=== PATIENT | female | born 1935 ===

== ENCOUNTER 2018-02-26 14:12 | Outpatient (CLI) | payer OTHER | END 2018-02-26 14:13 | disposition home or self-care (01) | LOC: LAB 14:12 | DX: C50.412 Malignant neoplasm of upper-outer quadrant of left female breast (principal); Z17.0 Estrogen receptor positive status [ER+]; Z79.811 Long term (current) use of aromatase inhibitors; Z90.12 Acquired absence of left breast and nipple; D50.8 Other iron deficiency anemias; D63.0 Anemia in neoplastic disease; D51.8 Other vitamin B12 deficiency anemias; F33.8 Other recurrent depressive disorders; E03.8 Other specified hypothyroidism; I10 Essential (primary) hypertension; E78.2 Mixed hyperlipidemia; R97.0 Elevated carcinoembryonic antigen [CEA]; R97.8 Other abnormal tumor markers ==

== ENCOUNTER 2018-03-18 14:44 | Outpatient (CLI) | payer OTHER ==
[~2018-03-18 14:44] MED LIST: APETIGEN PO; ATIVAN2 MG PO; INFUVITE ADULT10 ML IV; LORazepam 1MG TAB PO; Neurin-Sl Tablet Sl SL; VASOTEC20 MG PO; VYTORIN 10-20 M1 TAB PO; ZOLOFT50 MG PO
== END 2018-03-18 15:00 | disposition home or self-care (01) ==
LOC: MRI 14:44
DX: M54.5 Low back pain (principal)
CPT/HCPCS: 72148

== ENCOUNTER 2018-05-30 13:47 | Outpatient (CLI) | payer OTHER | END 2018-05-30 14:08 | disposition home or self-care (01) | LOC: LAB 13:47 | DX: E03.8 Other specified hypothyroidism (principal); E78.2 Mixed hyperlipidemia; C50.412 Malignant neoplasm of upper-outer quadrant of left female breast; D50.8 Other iron deficiency anemias; D63.8 Anemia in other chronic diseases classified elsewhere; D64.89 Other specified anemias; D70.8 Other neutropenia; F33.8 Other recurrent depressive disorders; E78.89 Other lipoprotein metabolism disorders; E55.9 Vitamin D deficiency, unspecified; Z98.1 Arthrodesis status; F41.8 Other specified anxiety disorders; G62.89 Other specified polyneuropathies; M17.11 Unilateral primary osteoarthritis, right knee; M81.0 Age-related osteoporosis without current pathological fracture; F39 Unspecified mood [affective] disorder; I70.0 Atherosclerosis of aorta ==

== ENCOUNTER → 2018-07-09 | Outpatient (CLI) | payer OTHER | END | disposition home or self-care (01) | LOC: MAMO-SONO 13:30 | DX: Z12.31 Encounter for screening mammogram for malignant neoplasm of breast (principal); C50.412 Malignant neoplasm of upper-outer quadrant of left female breast; Z90.12 Acquired absence of left breast and nipple; Z17.0 Estrogen receptor positive status [ER+]; Z79.811 Long term (current) use of aromatase inhibitors; D50.8 Other iron deficiency anemias; D63.8 Anemia in other chronic diseases classified elsewhere; D51.8 Other vitamin B12 deficiency anemias; F33.9 Major depressive disorder, recurrent, unspecified; I10 Essential (primary) hypertension ==

== ENCOUNTER 2018-07-21 12:15 | Outpatient (CLI) | payer OTHER | END 2018-07-21 17:00 | disposition home or self-care (01) | LOC: TOM 12:15 | DX: K56.600 Partial intestinal obstruction, unspecified as to cause (principal); K63.5 Polyp of colon; Z86.010 Personal history of colon polyps ==

== ENCOUNTER 2018-08-01 10:57 | Outpatient (CLI) | payer OTHER | END 2018-08-01 11:00 | disposition home or self-care (01) | LOC: NUCLEAR 10:57 | DX: C50.412 Malignant neoplasm of upper-outer quadrant of left female breast (principal); Z90.12 Acquired absence of left breast and nipple; Z17.0 Estrogen receptor positive status [ER+]; Z79.811 Long term (current) use of aromatase inhibitors; D50.8 Other iron deficiency anemias; D63.8 Anemia in other chronic diseases classified elsewhere; D51.8 Other vitamin B12 deficiency anemias; E03.9 Hypothyroidism, unspecified; I10 Essential (primary) hypertension; Z08 Encounter for follow-up examination after completed treatment for malignant neoplasm | CPT/HCPCS: 78816; A9552 ==

== ENCOUNTER 2018-08-06 12:10 | Outpatient (CLI) | payer OTHER | END 2018-08-06 12:49 | disposition home or self-care (01) | LOC: LAB 12:10 | DX: C50.412 Malignant neoplasm of upper-outer quadrant of left female breast (principal); Z90.12 Acquired absence of left breast and nipple; Z17.0 Estrogen receptor positive status [ER+]; Z79.811 Long term (current) use of aromatase inhibitors; D50.8 Other iron deficiency anemias; D63.8 Anemia in other chronic diseases classified elsewhere; D51.8 Other vitamin B12 deficiency anemias; E03.8 Other specified hypothyroidism; I10 Essential (primary) hypertension; E55.9 Vitamin D deficiency, unspecified; R97.0 Elevated carcinoembryonic antigen [CEA]; R97.8 Other abnormal tumor markers; K29.40 Chronic atrophic gastritis without bleeding; D3A.092 Benign carcinoid tumor of the stomach; K57.30 Diverticulosis of large intestine without perforation or abscess without bleeding ==

== ENCOUNTER 2018-08-11 15:32 | Emergency (ER) | payer OTHER ==
[~2018-08-11] VITALS: Ht 152.4 cm; Wt 52.2 kg
[2018-08-11] MEDS ORDERED: KETO10TA2 PO (21:02)
[2018-08-11] MEDS ORDERED: DUI500 PO (21:02)
[2018-08-11] MEDS ORDERED: INTESTINEX680 M1 PO (21:02)
[2018-08-11] MEDS ORDERED: PEPCID AC20 MG PO (21:02)
== END 2018-08-11 21:15 | disposition home or self-care (01) ==
LOC: ER 15:32
DX: L03.113 Cellulitis of right upper limb (principal); M70.21 Olecranon bursitis, right elbow; M25.531 Pain in right wrist; S50.3 Other superficial injuries of elbow; W18.09XS Striking against other object with subsequent fall, sequela

== ENCOUNTER 2019-04-25 16:06 | Emergency (ER) | payer OTHER ==
[~2019-04-25] VITALS: Ht 160 cm; Wt 65.8 kg
[~2019-04-25 16:06] MED LIST changes: +DUI500 PO; +INTESTINEX680 M1 PO; +KETO10TA2 PO; +PEPCID AC20 MG PO
== END 2019-04-25 23:37 | disposition home or self-care (01) ==
LOC: ER 16:06
DX: K52.89 Other specified noninfective gastroenteritis and colitis (principal); E86.0 Dehydration; N39.0 Urinary tract infection, site not specified; S00.03XA Contusion of scalp, initial encounter; S40.812A Abrasion of left upper arm, initial encounter; S19.89XA Other specified injuries of other specified part of neck, initial encounter; W18.09XA Striking against other object with subsequent fall, initial encounter; Y93.89 Activity, other specified; Y92.89 Other specified places as the place of occurrence of the external cause; Y99.8 Other external cause status

== ENCOUNTER 2019-05-12 16:19 | Emergency (ER) | payer OTHER ==
[~2019-05-12] VITALS: Ht 157.5 cm; Wt 52.2 kg
== END 2019-05-13 07:59 | disposition home or self-care (01) ==
LOC: ER 16:19
DX: E86.0 Dehydration (principal); R53.1 Weakness

== ENCOUNTER 2019-06-14 14:05 | Emergency (ER) | payer OTHER ==
[~2019-06-14] VITALS: Ht 152.4 cm; Wt 59.0 kg
== END 2019-06-14 18:30 | disposition designated cancer center or children's hospital (05) ==
LOC: ER 14:05
DX: S00.83XA Contusion of other part of head, initial encounter (principal); D49.6 Neoplasm of unspecified behavior of brain; W18.09XA Striking against other object with subsequent fall, initial encounter; Y93.89 Activity, other specified; Y92.89 Other specified places as the place of occurrence of the external cause; Y99.8 Other external cause status

== ENCOUNTER 2019-08-10 13:22 | Emergency (ER) | payer OTHER ==
[~2019-08-10] VITALS: Ht 152.4 cm; Wt 47.6 kg
[2019-08-11] MEDS ORDERED: CIPRO500 MG PO (06:57)
== END 2019-08-11 07:24 | disposition home or self-care (01) ==
LOC: ER 13:22
DX: N39.0 Urinary tract infection, site not specified (principal); R42 Dizziness and giddiness; C71.9 Malignant neoplasm of brain, unspecified; Z92.3 Personal history of irradiation

== ENCOUNTER → 2019-09-23 | Emergency (ER) | payer OTHER ==
[~2019-09-23] VITALS: Ht 165.1 cm; Wt 49.9 kg
[~2019-09-23] MED LIST changes: +CIPRO500 MG PO
== END | disposition expired ==
LOC: ER 14:52
DX: K92.2 Gastrointestinal hemorrhage, unspecified (principal); R06.03 Acute respiratory distress; I46.9 Cardiac arrest, cause unspecified; D49.6 Neoplasm of unspecified behavior of brain; R53.1 Weakness; Z85.3 Personal history of malignant neoplasm of breast; Z66 Do not resuscitate